=== PATIENT | male | born 1945 | race Caucasian/White ===

== ENCOUNTER 2017-01-07 07:51 | Day surgery (SDC) | payer BC ==
[2017-01-05 16:50] LABS: BASOPHILS 0.5 %; BASOPHILS ABSOLUTE 0.03 10/3/uL (0.0-0.16); EOSINOPHILS 2.1 %; EOSINOPHILS ABSOLUTE 0.13 10/3/uL (0.0-0.53); IMMATURE GRANULOCYTES 0.3 %; IMMATURE GRANULOCYTES ABSOLUTE 0.02 10/3/uL (0.0-0.11); LYMPHOCYTES 20.7 %; LYMPHOCYTES ABSOLUTE 1.28 10/3/uL (0.67-4.30); MEAN CORPUS HGB CONC 34.2 g/dL (32.0-36.0); MEAN CORPUSCULAR HEMOGLOB 32.9 pg (26.0-34.0); MEAN CORPUSCULAR VOLUME 96.3 fL (80-100); MEAN PLATELET VOLUME 10.5 fL (9.2-13.0); MONOCYTES 15.7 %; MONOCYTES ABSOLUTE 0.97 10/3/uL (0.21-1.20); NEUTROPHILS 60.7 %; NEUTROPHILS ABSOLUTE 3.74 10/3/uL (2.02-8.40); PLATELET COUNT 232 10/3/uL (150-400); RBC DISTRIBUTION WIDTH 12.7 % (12.0-16.0); RED CELL COUNT 4.28 10/6/uL (4.7-6.1); WHITE BLOOD CELLS 6.2 10/3/uL (4.5-10.5)
[2017-01-05 16:55] LABS: HEMATOCRIT 41.2 % (40.0-51.0); HEMOGLOBIN 14.1 g/dL (13.6-17.8); MANUAL DIFF NO %
[2017-01-05 16:57] LABS: BUN (BLOOD UREA NITROGEN) 30 MG/DL (6-23); CALCIUM, SERUM 9.1 MG/DL (8.5-10.4); CHLORIDE, SERUM 108 MMOL/L (96-112); CO2 (CARBON DIOXIDE) 30 MMOL/L (24-34); CREATININE 1.29 MG/DL (0.70-1.30); GFR AFRICAN AMERICAN 63 ML/MIN (>=60); GFR NON AFRICAN AMERICAN 55 ML/MIN (>=60); GLUCOSE, SERUM 103 MG/DL (60-99); POTASSIUM, SERUM 4.2 MMOL/L (3.5-5.3); SODIUM, SERUM 145 MMOL/L (135-148)
--- NOTE | ~2017-01-07 | OP ---
Record Of Operation [facility] [address] [place]. 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 PROCEDURE: Right leg arteriogram with stent graft placement popliteal aneurysm. SURGEON: Jayro Sen M.D. FELLOW: Qasim. ANESTHESIA: Local with sedation. COMPLICATIONS: None. ESTIMATED BLOOD LOSS: 30 mL. HISTORY: The patient is a 71-year-old male with a history of a popliteal aneurysm on the right treated with a Viabahn stent. He was noted to have a type 1 endoleak increasing sac size. Based on this, it was felt he would benefit from repair with additional Viabahn stent. This was discussed in detail with the patient and . They expressed understanding and desired to proceed. DESCRIPTION OF PROCEDURE: The patient was taken to the operating room and placed in the supine position. He was given IV sedation without complication. Both groins were prepped and draped in a sterile fashion. A 1% lidocaine was infiltrated in the skin and subcutaneous tissues overlying the common femoral artery on the right. Under ultrasound guidance, 18-gauge needle was placed into the common femoral on the right in an antegrade fashion. Wire passed easily and fluoroscopy showed this to be within the superficial femoral artery. Needle was removed. The skin incision was enlarged with 11 blade and subcutaneous tissue was dilated with a hemostat. A 5-Telugu sheath was placed, then removed and a ProGlide device passed over the wire. A ProGlide was deployed without difficulty. The wire was then replaced followed by a 9-Telugu sheath. Arteriogram was performed which shows a patent superficial femoral artery with ectasia. 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 The stent is widely patent and no significant leak is seen. Popliteal artery is patent beyond the stent. The wire was guided in through the stent and this was confirmed by twirling the bur catheter within the stent. A 9 x 15 Viabahn stent was then deployed with more than 3 cm overlap distally into the superficial femoral artery where it narrowed down. This was post angioplastied with a 9 mm balloon. Post arteriogram shows a widely patent stent. No residual type 1 endoleak and good flow distally into the tibial vessels as well. This was felt to be an excellent Record Of Operation [address] [address] NAME: JAYRO DUNCAN : 41 STATUS : REG [facility] PAT#: [id number] AGE: 71 ADM/REG DATE : 01/07/17 MR#: [id number] REPORT SERV DATE: 01/07/17 DICTATED BY: JAYRO SEN DATE: 01/07/17 REPORT STATUS : Draft TRANSCRIBED BY: MODL DATE: 01/07/17 result. The sheath was removed and the access secured with the ProGlide device. There was still significant bleeding, so a second ProGlide device was passed through the wire and deployed with a 45 degree angle. The wire was then removed and the suture secured. Fibrillar was placed into the wound. The patient was given protamine and pressure was held. Hemostasis was achieved. Of note, prior to the intervention, the patient had received 4000 units of heparin intravenously. Once hemostasis was assured, the skin was closed with 4-0 Monocryl suture. Sterile dressing applied. The patient tolerated the procedure well and was taken to the recovery room in stable condition. KIAN/NAYELI Jayro Sen M.D. / [id number] CC: Zenaida Flynn M.D.
[~2017-01-07 07:51] MED LIST: ALLEGRA180 PO; ASAEC PO; C5; COZ50 PO; FLOMAX4 PO; HYZAAR 50/12.51 TAB PO; LEVOTHYROXIN100 MCG PO; LEVOTHYROXIN150 MCG PO; LEXAPRO10 PO; LORTAB PO; MIRALAXPKT PO; OXYCOD PO; PLAVIX PO; RESTORIL30 MG PO; SPIRIVA INH; SYMBICORT 160/41 INH INH; ZESTORETIC1 TA1 PO; [UNRECOGNIZED DRUG - OTHER]
== END 2017-01-07 17:40 | disposition home or self-care (01) ==
LOC: SDC 07:51 → SSU1 12:21
PROVIDERS: Surgery
PROC: 047M3DZ Dilation of Right Popliteal Artery with Intraluminal Device, Percutaneous Approach (ICD-10-PCS; principal; 2017-01-07 09:15)
PROC: B41FZZZ Fluoroscopy of Right Lower Extremity Arteries (ICD-10-PCS; 2017-01-07 09:15)
DX: I72.4 Aneurysm of artery of lower extremity (principal); I10 Essential (primary) hypertension; I25.2 Old myocardial infarction; I25.10 Atherosclerotic heart disease of native coronary artery without angina pectoris; I73.9 Peripheral vascular disease, unspecified; I71.4 Abdominal aortic aneurysm, without rupture; E03.9 Hypothyroidism, unspecified; J44.9 Chronic obstructive pulmonary disease, unspecified; C85.90 Non-Hodgkin lymphoma, unspecified, unspecified site; Z87.891 Personal history of nicotine dependence; Z95.828 Presence of other vascular implants and grafts; Z79.02 Long term (current) use of antithrombotics/antiplatelets; Z79.899 Other long term (current) drug therapy
CPT/HCPCS: 37236; 75710; 80048; 85025; 93005; A9270-GY; C1725; C1760; C1769; C1874; C1894; J0690; J2250; J2720; J3010; Q9967